=== PATIENT | male | born 1985 | race Hispanic/Latino ===

== ENCOUNTER 2017-08-05 18:53 | Inpatient (IN) | payer MEDICAID ==
[2017-08-05 19:01] VITALS: BMI 28.8
--- NOTE | 2017-08-05 19:19 | ED PDOC ---
Arrival/HPI - General Chief Complaint: Psychiatric Evaluation Time Seen by Provider: 08/05/17 18:56 Historian: Patient - History of Present Illness Narrative History of Present Illness (Text): 08/05/17 19:16 31yr old male presents today with depression and SI. pt states that for the past 6 months he has been feeling more depressed s/p separation and moving back to [place]. pt denies cp or sob. no abdominal pain. no n/v/d/c. admits to drinking etoh today. pt states he considered suicide by coper hand. no other complaints. Past Medical History - Provider Review Nursing Documentation Reviewed: Yes - Travel History Have you recently traveled outside US w/in the past 3 mons?: No - Infectious Disease Hx of Infectious Diseases: None - Psychiatric Hx Bipolar Disorder: Yes Hx Substance Use: No - Anesthesia Hx Anesthesia: No Family/Social History - Physician Review Nursing Documentation Reviewed: Yes Family/Social History: Unknown Family HX Smoking Status: Heavy Smoker > 10 Cigarettes Daily Hx Alcohol Use: Yes Frequency of alcohol use: Daily Hx Substance Use: No Allergies/Home Meds Allergies/Adverse Reactions: Allergies No Known Allergies Allergy (Verified 08/05/17 19:01) Home Medications: Home Meds Medication Instructions Recorded Confirmed No Known Home Med 08/05/17 08/05/17 Review of Systems - Review of Systems Constitutional: absent: Fatigue, Fevers Respiratory: absent: SOB, Cough Cardiovascular: absent: Chest Pain, Palpitations Gastrointestinal: absent: Abdominal Pain, Nausea, Vomiting Genitourinary Male: absent: Dysuria Musculoskeletal: absent: Arthralgias, Neck Pain Skin: absent: Rash, Pruritis Neurological: absent: Headache, Dizziness Psychiatric: Depression, Suicidal Ideation Physical Exam Vital Signs Reviewed: Yes Vital Signs Temp Pulse Resp BP Pulse Ox 08/05/17 19:39 98.0 F 88 18 115/74 99 Temperature: Afebrile Blood Pressure: Normal Pulse: Regular Respiratory Rate: Normal Appearance: Positive for: Well-Appearing, Non-Toxic, Comfortable Pain Distress: None Mental Status: Positive for: Alert and Oriented X 3 - Systems Exam Head: Present: Atraumatic Mouth: Present: Moist Mucous Membranes Neck: Present: Normal Range of Motion Respiratory/Chest: Present: Clear to Auscultation, Good Air Exchange. No: Respiratory Distress, Accessory Muscle Use Cardiovascular: Present: Regular Rate and Rhythm, Normal S1, S2. No: Murmurs Abdomen: No: Tenderness Upper Extremity: Present: Normal ROM Lower Extremity: Present: Normal ROM Neurological: Present: GCS=15, Speech Normal Skin: Present: Warm, Dry, Normal Color. No: Rashes Psychiatric: Present: Alert, Oriented x 3, Depressed Mood, Suicidal Ideation Medical Decision Making ED Course and Treatment: 08/05/17 19:21 Patient is nontoxic well-appearing in no distress vital signs are stable. CBC WNL CMP WNL Tylenol WNL Salicylate WNL Alcohol level 158 Urine drug screen wnl UA; wnl cxr: wnl ekg nsr at 76b/m no st elevations, normal axis, normal intervals. pt is medically cleared for PES evaluation Patient was seen and evaluated by PES screener: lonny pt c/o acid reflux; requesting protonix. states he takes medication at home for his reflux. pt signed voluntarily to behavioral health floor for depression Impression; depression admit to behavioral health floor 08/05/17 21:50 - Lab Interpretations Lab Results: 08/05/17 19:10 08/05/17 19:10 Lab Results 08/05/17 19:20: Urine Opiates Screen Negative, Urine Methadone Screen Negative, Ur Barbiturates Screen Negative, Ur Phencyclidine Scrn Negative, Ur Amphetamines Screen Negative, U Benzodiazepines Scrn Negative, U Oth Cocaine Metabols Negative, U Cannabinoids Screen Negative 08/05/17 19:20: Urine Color Yellow, Urine Appearance Clear, Urine pH 6.0, Ur Specific [place] <= 1.005, Urine Protein Negative, Urine Glucose (UA) Negative, Urine Ketones Negative, Urine Blood Negative, Urine Nitrate Negative, Urine Bilirubin Negative, Urine Urobilinogen 0.2, Ur Leukocyte Esterase Negative 08/05/17 19:10: Alcohol, Quantitative 158 H 08/05/17 19:10: Salicylates < 1 L, Acetaminophen < 10.0 L 08/05/17 19:10: Sodium 141, Potassium 3.8, Chloride 105, Carbon Dioxide 23, Anion Gap 17, BUN 11, Creatinine 0.7 L, Est GFR ( Amer) > 60, Est GFR ( Non-Af Amer) > 60, Random Glucose 102, Calcium 9.5, Total Bilirubin 0.2, AST 30 , ALT 34, Alkaline Phosphatase 71, Total Protein 7.7, Albumin 4.6, Globulin 3.1 , Albumin/Globulin Ratio 1.5 08/05/17 19:10: WBC 7.0, RBC 5.03, Hgb 14.1, Hct 41.8 L, MCV 83.1, MCH 28.0, MCHC 33.7, RDW 14.1, Plt Count 264, MPV 9.4, Gran % 50.3, Lymph % (Auto) 40.8 H , [place] % (Auto) 5.8, Eos % (Auto) 2.7, Baso % (Auto) 0.4, Gran # 3.54, Lymph # 2.9, [place] # 0.4, Eos # 0.2, Baso # 0.03 - RAD Interpretation Radiology Orders: 08/05/17 19:14 CHEST PORTABLE [RAD] Stat - Medication Orders Current Medication Orders: Discontinued Medications Al Hydrox/Mg Hydrox/Simethicone (Maalox Plus 30 Ml) 30 ml PO STAT STA Stop: 08/05/17 20:34 Last Admin: 08/05/17 21:01 Dose: 30 ml Pantoprazole Sodium (Protonix Ec Tab) 20 mg PO ONCE ONE Stop: 08/05/17 20:32 Last Admin: 08/05/17 21:01 Dose: 20 mg Disposition/Present on Arrival - Present on Arrival Any Indicators Present on Arrival: No History of DVT/PE: No History of Uncontrolled Diabetes: No Urinary Catheter: No History of Decub. Ulcer: No History Surgical Site Infection Following: None - Disposition Have Diagnosis and Disposition been Completed?: Yes Diagnosis: Depression Disposition: HOSPITALIZED Disposition Time: 21:50 Patient Plan: Admission Patient Problems: Current Active Problems Problem Status Onset Depression Acute Condition: FAIR Forms: [employer] (Danish)
[2017-08-05 19:42] LABS: BASO # 0.03 K/mm3 (0.0-2.0); BASO % 0.4 % (0.0-3.0); EOS # 0.2 (0.0-0.7); EOS % 2.7 % (1.5-5.0); GRAN # 3.54 (1.4-6.5); GRAN % 50.3 % (50.0-68.0); HEMATOCRIT 41.8 % (42.0-52.0); LYMPH # 2.9 (1.2-3.4); LYMPH % 40.8 % (22.0-35.0); MEAN CELL VOLUME 83.1 fl (80.0-105.0); MEAN CORPUSCULAR HGB CONC 33.7 g/dl (31.0-37.0); MEAN PLATELET VOLUME 9.4 fl (7.0-11.0); MONO # 0.4 (0.1-0.6); MONO % 5.8 % (1.0-6.0); RED CELL DISTRIBUTION WIDTH 14.1 % (11.5-14.5)
[2017-08-05 19:53] LABS: URINE APPEARANCE CLEAR (CLEAR); URINE BILIRUBIN NEGATIVE (NEGATIVE); URINE BLOOD NEGATIVE (NEGATIVE); URINE COLOR YELLOW (YELLOW); URINE GLUCOSE (UA) NEGATIVE (NEGATIVE); URINE KETONE NEGATIVE (NEGATIVE); URINE LEUKOCYTE ESTERASE NEGATIVE Leu/uL (NEGATIVE); URINE PROTEIN NEGATIVE mg/dL (<30 mg/dL); URINE UROBILINOGEN 0.2 E.U./dL (<1 E.U./dL)
[2017-08-05 19:59] LABS: ALB/GLOB RATIO 1.5 (1.1-1.8); ALKALINE PHOSPHATASE 71 U/L (38-126); ALT/SGPT 34 U/L (7-56); AST/SGOT 30 U/L (17-59); BILIRUBIN,TOTAL 0.2 mg/dL (0.2-1.3); BLOOD UREA NITROGEN 11 mg/dL (7-21); CALCIUM 9.5 mg/dL (8.4-10.5); CARBON DIOXIDE 23 mmol/L (21-33); CHLORIDE 105 mmol/L (98-107); GFR AFRICAN-AMERICAN > 60; GLUCOSE,RANDOM 102 mg/dL (70-110); POTASSIUM 3.8 mmol/L (3.6-5.0); SODIUM 141 mmol/L (132-148); TOTAL PROTEIN 7.7 g/dL (5.8-8.3)
[2017-08-05] MEDS ORDERED: Pantoprazole 20 mg EC Tab PO ONE (20:31)
[2017-08-05] MEDS ORDERED: Alum-Mag Hydrox-Simethicone Susp (30 mL) PO STA (20:33)
[2017-08-05] MEDS ORDERED: Alum-Mag Hydrox-Simethicone Susp (30 mL) PO PRN (23:31)
[2017-08-05] MEDS ORDERED: DiphenhydrAMINE 50 mg/ml Inj IM PRN (23:31)
[2017-08-05] MEDS ORDERED: Magnesium Hydroxide Susp 30 ml UD PO PRN (23:31)
[2017-08-06 01:03] VITALS: O2SAT 96
--- NOTE | 2017-08-06 01:39 | PCM.BM ---
<Hernando Sanchez - Last Filed: 08/06/17 01:37> Treatment Plan Problems - Problems identified on initial assessmt Suicidal Ideation Date Initiated: 08/05/17 Time Initiated: 22:30 Assessment reference: NA Status: Active Priority: 2 Depression Date Initiated: 08/05/17 Time Initiated: 22:30 Status: Active Priority: 1 Treatment assets and liabiliti Patient Assests: cooperative, self-reliant, ADL independent, physically healthy , negotiates basic needs, cognitively intact Patient Liabilities: live alone, financial problems, poor support system, relationship conflicts, substance abuse - Milieu Protocol Maintain good personal hygiene: daily Encourage regular showers, daily Remind patient to perform daily oral care Conduct patient checks and document Observation sheet: Q15 minutes Maintain personal safety: every shift Educate patient to report safety concerns to staff, every shift Monitor environment for contraband/sharps Medication safety: Monitor for expected outcome, potential side effects: every shift, Assess barriers to learning: every shift, Assess readiness for medication education: every shift Discharge/Continuing Care - Education Needs Education Needs: Patient Medication, Patient Diagnosis/Disease Process, Patient Coping Skills, Patient Placement options, Patient Community resources, Patient Activities of Daily Living, Patient Health Practices/Safety - Discharge Discharge Criteria: Tolerates medication w/o severe side effects, Free of Suicidal thoughts, Normal sleep pattern <Sofia Dockery - Last Filed: 08/06/17 23:19> - Diagnosis (1) Alcohol abuse Status: Acute Interventions: Monitoring withdrawal symptoms Medical detoxification Pharmacotherapy for alcohol/benzos/opioid dependence Maintaining sobriety Relapse prevention Possible rehabilitation Motivational interviewing 12-step programs: AA meetings 08/06/17 23:19 (2) Depression Status: Acute Interventions: Psychoeducation Psychopharmacology/adjustment of medications as needed/ monitoring possible side effects Evaluate pt on daily basis Compliance with medications and follow up appointments Suicide and homicide risk assessment and prevention Relapse prevention Reduction of symptoms Improve functional status Family involvement As outpatient: cognitive behavioral therapy 08/06/17 23:20 <Cintia Resendiz - Last Filed: 08/07/17 08:27> Family Contact Family involvement: Famliy/SO not involved - Goals for Treatment Patient goals for treatment: "To find a place to live."
[2017-08-06 07:43] LABS: CHOLESTEROL 218 mg/dL (130-200); GLUCOSE,FASTING 95 mg/dL (65-110)
[2017-08-06 07:44] VITALS: RESP 20
--- NOTE | 2017-08-06 09:33 | RAD ---
HISTORY: pes eval . Portable study 19:23 COMPARISON: None. FINDINGS: LUNGS: No active pulmonary disease. PLEURA: No significant pleural effusion identified, no pneumothorax apparent. CARDIOVASCULAR: Normal. OSSEOUS STRUCTURES: No significant abnormalities. VISUALIZED UPPER ABDOMEN: Normal. OTHER FINDINGS: None. IMPRESSION: No active disease.
[2017-08-06] MEDS: Oxycodone/Acetaminophen 2.5/325 mg Tab PO PRN ×2 (16:21→22:32)
--- NOTE | 2017-08-06 17:27 | CARD ---
APPROVED REPORT EKG Measurement Heart [id number] <Conclusion> Normal sinus rhythm Normal ECG
--- NOTE | 2017-08-06 19:47 | CP.PCM.CON ---
<HugoyoanaAkilshelly - Last Filed: 08/06/17 20:17> History of Present Illness - History of Present Illness History of Present Illness: Patient is a 31 year old male with no significant PMHx who was admitted to the psychiatric unit for depression with suicidal ideation. Patient currently denies suicidal ideation. We were consulted on this patient for evaluation and treatment of any medical issues. Patient complains of upper back pain. He is showing some drug seeking behavior. He asked for Dilaudid 2 and percocet 10/325 on several occasions. He also noted that ibuprofen wouldn't work and that Tramadol should be tried as an option. He denies any fevers, headache, chest pain, SOB, abdominal pain, n/v/d, constipation, urinary symptoms, or suicidal ideation. PMHx: T4/T5 Compression fracture. Brain Hemorrhage in 2010 PSHx: Denies Allergies: Penicillin SocialHx: 1/2 a pack a day for 10 years. Admits to social alcohol use. Denies illicit drug use. Family Hx: Unknown Meds: Norvasc 10 Daily, Prednisone 10mg Daily Past Patient History - Infectious Disease Hx of Infectious Diseases: None - Past Social History Smoking Status: Heavy Smoker > 10 Cigarettes Daily - CARDIAC Hx Cardiac Disorders: No Hx Hypertension: No - PULMONARY Hx Tuberculosis: No - NEUROLOGICAL HX Cerebrovascular Accident: No Hx Seizures: No Other/Comment: "Brain Hemorrhage" - HEMATOLOGICAL/ONCOLOGICAL Hx Cancer: No Hx Human Immunodeficiency Virus (HIV): No - GENITOURINARY/GYNECOLOGICAL Hx Sexually Transmitted Disorders: No - PSYCHIATRIC Hx Anxiety: Yes Hx Bipolar Disorder: Yes Hx Substance Use: Yes - SURGICAL HISTORY Hx Surgeries: No - ANESTHESIA Hx Anesthesia: No Meds Allergies/Adverse Reactions: Allergies Allergy/AdvReac Type Severity Reaction Status Date / Time Penicillins Allergy RASH Verified 08/05/17 23:47 - Medications Medications: Current Medications Acetaminophen (Tylenol 325mg Tab) 650 mg PO Q4 PRN PRN Reason: Pain, moderate (4-7) Last Admin: 08/06/17 12:15 Dose: 650 mg Al Hydrox/Mg Hydrox/Simethicone (Maalox Plus 30 Ml) 30 ml PO DAILY PRN PRN Reason: Upset Stomach Clonazepam (Klonopin) 0.5 mg PO TID PRN; Protocol PRN Reason: Anxiety Diphenhydramine HCl (Benadryl) 50 mg IM Q6 PRN PRN Reason: severe agitation Diphenhydramine HCl (Benadryl) 50 mg PO Q6 PRN PRN Reason: severe agitation Duloxetine HCl (Cymbalta) 20 mg PO DAILY ZACK Last Admin: 08/06/17 09:35 Dose: 20 mg Haloperidol (Haldol) 5 mg PO Q6 PRN; Protocol PRN Reason: severe agitation Last Admin: 08/06/17 13:19 Dose: 5 mg Haloperidol Lactate (Haldol) 5 mg IM Q6 PRN; Protocol PRN Reason: severe agitation Lorazepam (Ativan) 2 mg PO Q6 PRN; Protocol PRN Reason: severe anxiety Last Admin: 08/06/17 12:32 Dose: 2 mg Lorazepam (Ativan) 2 mg IM Q6H PRN; Protocol PRN Reason: severe agitation Magnesium Hydroxide (Milk Of Magnesia) 30 ml PO DAILY PRN PRN Reason: Constipation Oxycodone/Acetaminophen (Percocet 2.5/325 Mg Tab) 1 tab PO Q6H PRN PRN Reason: Pain, severe (8-10) Last Admin: 08/06/17 16:21 Dose: 1 tab Trazodone HCl (Desyrel) 50 mg PO HS PRN PRN Reason: Insomnia Physical Exam - Constitutional Appears: Well, Non-toxic, No Acute Distress - Head Exam Head Exam: ATRAUMATIC, NORMAL INSPECTION, NORMOCEPHALIC - Eye Exam Eye Exam: EOMI, Normal appearance - ENT Exam ENT Exam: Mucous Membranes Moist - Respiratory Exam Respiratory Exam: Clear to Auscultation Bilateral. absent: Rales, Rhonchi, Wheezes - Cardiovascular Exam Cardiovascular Exam: RRR, +S1, +S2 - GI/Abdominal Exam GI & Abdominal Exam: Normal Bowel Sounds, Soft. absent: Tenderness - Extremities Exam Extremities exam: Negative for: joint swelling, pedal edema - Back Exam Back exam: paraspinal tenderness (T4/T5 Region) - Neurological Exam Neurological exam: Alert, Normal Gait, Oriented x3 Additional comments: 5/5 Motor Strength in Upper and Lower Ext. B/L No sensory deficit. - Psychiatric Exam Psychiatric exam: Normal Affect, Normal Mood - Skin Skin Exam: Dry, Intact, Normal Color, Warm Results - Vital Signs Recent Vital Signs: Last Vital Signs Temp 97.3 F L 08/06/17 13:15 Pulse 74 08/06/17 16:00 Resp 20 08/06/17 07:43 BP 117/68 08/06/17 16:00 Pulse Ox 96 08/05/17 22:30 - Labs Result Diagrams: 08/05/17 19:10 08/05/17 19:10 Labs: Laboratory Results - last 24 hr 08/06/17 08/06/17 08/06/17 07:00 07:00 07:00 Fasting Glucose 95 Triglycerides 130 Cholesterol 218 H LDL Cholesterol Direct 150 H HDL Cholesterol 43 TSH 3rd Generation 1.25 RPR Nonreactive Assessment & Plan - Assessment and Plan (Free Text) Assessment: Patient is a 31 year old male with no significant PMHx who was admitted to the psychiatric unit for depression with suicidal ideation. Patient currently denies suicidal ideation. We were consulted on this patient for evaluation and treatment of any medical issues. Plan: Back Pain Percocet 5/325 confirmed with Pharmacy Start percocet 2.5/325 Disposition: We will sign of on this patient at this time. Please feel free to contact us if necessary. Patient seen and discussed with Attending Michael Lei - PGY1 <Kelly Rojas - Last Filed: 08/07/17 14:27> Results - Vital Signs Recent Vital Signs: Last Vital Signs Temp 97.7 F 08/07/17 07:42 Pulse 72 08/07/17 07:42 Resp 20 08/07/17 07:42 BP 107/62 08/07/17 07:42 Pulse Ox 96 08/05/17 22:30 - Labs Result Diagrams: 08/05/17 19:10 08/05/17 19:10 Labs: Laboratory Results - last 24 hr 08/06/17 07:00 RPR Nonreactive Attending/Attestation - Attestation I have personally seen and examined this patient.: Yes I have fully participated in the care of the patient.: Yes I have reviewed all pertinent clinical information: Yes Notes (Text): 08/07/17 14:23 Patient was seen and examined with medical administrative specialist. Agreed with resident assessment and plan. Patient id ambulatory, does not seem to be in pain.Power is normal in both upper and lower extremities.There is no Neurological deficit. Patient does not has any active medical issue, we will sign off.Please call us back if any question. Management plan was discussed in detail with patient Education was provided.
--- NOTE | 2017-08-06 22:45 | PCM.PSYCH ---
Initial Psychiatric Evaluation - Initial Psychiatric Evaluation Type of Admission: Voluntary Legal Status: Capacity Chief Complaint (in patient's own words): "I wanted to kill myself" Patient's Reaction to Hospitalization: Patient feels he needs to be in the hospital to stabilize, there may be a secondary gain as patient indicates that he has "no where to go until next Saturday". Patient reports he wants to learn how to handle stress and elevate his mood. History of Present Illness and Precipitating Events: Patient is a 31 year old white male seen in treatment team admitted for suicidal ideation, wanting to "jump in front of a train". According to the PES notes, patient had considered by copyist and was recently discharged from [facility], neither of which the patient mentioned in treatment team. He indicates he has been depressed since he moved back to [place] from [place] after the breakup of his 5 year relationship with his fiancee due to "not enough shared interests". He has a plan to move with some friends to [facility] after the first of the year and get a job in sales. He came back to [place] to stay with his mom who lives in [place] but was unable to go there due to her having a problem with her roommate. He reports having a "couple of drinks" prior to admission. Patient reports he was released from rehab 3 days ago. Patient reports he was in [facility] and was transferred to [facility] in [place], [place]. Medically, he injured his back while in the [place]. He says he served 5 years and was discharged honorably. He does not have his papers from the service. PT reports he was last admitted to [facility] psych unit in 2009 while under the care of Dr. Adams. Current Medications: Active Medications Generic Name Dose Route Start Last Admin Trade Name Freq PRN Reason Stop Dose Admin Acetaminophen 650 mg 08/05/17 23:31 08/06/17 12:15 Tylenol 325mg Tab PO 650 mg Q4 PRN Administration Pain, moderate (4-7) Al Hydrox/Mg Hydrox/Simethicone 30 ml 08/05/17 23:31 Maalox Plus 30 Ml PO DAILY PRN Upset Stomach Clonazepam 0.5 mg 08/05/17 23:31 Klonopin PO TID PRN Anxiety Protocol Diphenhydramine HCl 50 mg 08/05/17 23:31 Benadryl IM Q6 PRN severe agitation Diphenhydramine HCl 50 mg 08/05/17 23:31 Benadryl PO Q6 PRN severe agitation Duloxetine HCl 20 mg 08/06/17 08:00 08/06/17 09:35 Cymbalta PO 20 mg DAILY ZACK Administration Haloperidol 5 mg 08/06/17 13:15 08/06/17 13:19 Haldol PO 5 mg Q6 PRN Administration severe agitation Protocol Haloperidol Lactate 5 mg 08/05/17 23:41 Haldol IM Q6 PRN severe agitation Protocol Lorazepam 2 mg 08/05/17 23:43 08/06/17 22:32 Ativan PO 2 mg Q6 PRN Administration severe anxiety Protocol Lorazepam 2 mg 08/05/17 23:31 Ativan IM Q6H PRN severe agitation Protocol Magnesium Hydroxide 30 ml 08/05/17 23:31 Milk Of Magnesia PO DAILY PRN Constipation Oxycodone/Acetaminophen 1 tab 08/06/17 15:15 08/06/17 22:32 Percocet 2.5/325 Mg Tab PO 1 tab Q6H PRN Administration Pain, severe (8-10) Trazodone HCl 50 mg 08/05/17 23:31 Desyrel PO HS PRN Insomnia Past Psychiatric History - Past Psychiatric History Previous Treatment History: Inpatient History of Abuse: Denied History of ETOH/Drug Use: History of alcoholism History of Family Illness: Denied Pertinent Medical Hx (Current Medical&Sleep Prob, Allergies): Allergies Allergy/AdvReac Type Severity Reaction Status Date / Time Penicillins Allergy RASH Verified 08/05/17 23:47 No Known Home Med 08/05/17 Laboratory Last Values WBC 7.0 10^3/ul (4.5-11.0) 08/05/17 19:10 RBC 5.03 10^6/uL (3.5-6.1) 08/05/17 19:10 Hgb 14.1 g/dL (14.0-18.0) 08/05/17 19:10 Hct 41.8 % (42.0-52.0) L 08/05/17 19:10 MCV 83.1 fl (80.0-105.0) 08/05/17 19:10 MCH 28.0 pg (25.0-35.0) 08/05/17 19:10 MCHC 33.7 g/dl (31.0-37.0) 08/05/17 19:10 RDW 14.1 % (11.5-14.5) 08/05/17 19:10 Plt Count 264 10^3/uL (120.0-450.0) 08/05/17 19:10 MPV 9.4 fl (7.0-11.0) 08/05/17 19:10 Gran % 50.3 % (50.0-68.0) 08/05/17 19:10 Lymph % (Auto) 40.8 % (22.0-35.0) H 08/05/17 19:10 [place] % (Auto) 5.8 % (1.0-6.0) 08/05/17 19:10 Eos % (Auto) 2.7 % (1.5-5.0) 08/05/17 19:10 Baso % (Auto) 0.4 % (0.0-3.0) 08/05/17 19:10 Gran # 3.54 (1.4-6.5) 08/05/17 19:10 Lymph # 2.9 (1.2-3.4) 08/05/17 19:10 [place] # 0.4 (0.1-0.6) 08/05/17 19:10 Eos # 0.2 (0.0-0.7) 08/05/17 19:10 Baso # 0.03 K/mm3 (0.0-2.0) 08/05/17 19:10 Sodium 141 mmol/L (132-148) 08/05/17 19:10 Potassium 3.8 mmol/L (3.6-5.0) 08/05/17 19:10 Chloride 105 mmol/L (98-107) 08/05/17 19:10 Carbon Dioxide 23 mmol/L (21-33) 08/05/17 19:10 Anion Gap 17 (10-20) 08/05/17 19:10 BUN 11 mg/dL (7-21) 08/05/17 19:10 Creatinine 0.7 mg/dl (0.8-1.5) L 08/05/17 19:10 Est GFR ( Amer) > 60 08/05/17 19:10 Est GFR (Non-Af Amer) > 60 08/05/17 19:10 Random Glucose 102 mg/dL (70-110) 08/05/17 19:10 Fasting Glucose 95 mg/dL (65-110) 08/06/17 07:00 Calcium 9.5 mg/dL (8.4-10.5) 08/05/17 19:10 Total Bilirubin 0.2 mg/dL (0.2-1.3) 08/05/17 19:10 AST 30 U/L (17-59) 08/05/17 19:10 ALT 34 U/L (7-56) 08/05/17 19:10 Alkaline Phosphatase 71 U/L (38-126) 08/05/17 19:10 Total Protein 7.7 g/dL (5.8-8.3) 08/05/17 19:10 Albumin 4.6 g/dL (3.0-4.8) 08/05/17 19:10 Globulin 3.1 gm/dL 08/05/17 19:10 Albumin/Globulin Ratio 1.5 (1.1-1.8) 08/05/17 19:10 Triglycerides 130 mg/dL (35-160) 08/06/17 07:00 Cholesterol 218 mg/dL (130-200) H 08/06/17 07:00 LDL Cholesterol Direct 150 mg/dL (0-129) H 08/06/17 07:00 HDL Cholesterol 43 mg/dL (29-60) 08/06/17 07:00 TSH 3rd Generation 1.25 mIU/mL (0.46-4.68) 08/06/17 07:00 Urine Color Yellow (YELLOW) 08/05/17 19:20 Urine Appearance Clear (CLEAR) 08/05/17 19:20 Urine pH 6.0 (4.7-8.0) 08/05/17 19:20 Ur Specific [place] <= 1.005 (1.005-1.035) 08/05/17 19:20 Urine Protein Negative mg/dL (<30 mg/dL) 08/05/17 19:20 Urine Glucose (UA) Negative mg/dL (NEGATIVE) 08/05/17 19:20 Urine Ketones Negative mg/dL (NEGATIVE) 08/05/17 19:20 Urine Blood Negative (NEGATIVE) 08/05/17 19:20 Urine Nitrate Negative (NEGATIVE) 08/05/17 19:20 Urine Bilirubin Negative (NEGATIVE) 08/05/17 19:20 Urine Urobilinogen 0.2 E.U./dL (<1 E.U./dL) 08/05/17 19:20 Ur Leukocyte Esterase Negative [place]/uL (NEGATIVE) 08/05/17 19:20 Salicylates < 1 mg/dL (2.0-20.0) L 08/05/17 19:10 Urine Opiates Screen Negative (NEGATIVE) 08/05/17 19:20 Urine Methadone Screen Negative (NEGATIVE) 08/05/17 19:20 Acetaminophen < 10.0 ug/ml (10.0-20.0) L 08/05/17 19:10 Ur Barbiturates Screen Negative (NEGATIVE) 08/05/17 19:20 Ur Phencyclidine Scrn Negative (NEGATIVE) 08/05/17 19:20 Ur Amphetamines Screen Negative (NEGATIVE) 08/05/17 19:20 U Benzodiazepines Scrn Negative (NEGATIVE) 08/05/17 19:20 U Oth Cocaine Metabols Negative (NEGATIVE) 08/05/17 19:20 U Cannabinoids Screen Negative (NEGATIVE) 08/05/17 19:20 Alcohol, Quantitative 158 mg/dL (0-10) H 08/05/17 19:10 RPR Nonreactive (NONREACTIVE) 08/06/17 07:00 Temp Pulse Resp BP Pulse Ox 97.3 F L 74 20 117/68 96 08/06/17 13:15 08/06/17 16:00 08/06/17 07:43 08/06/17 16:00 08/05/17 22:30 Review of Systems - EENT Eyes: As Per HPI Ears: As Per HPI Nose/Mouth/Throat: As Per HPI - Cardiovascular Cardiovascular: As Per HPI - Respiratory Respiratory: As Per HPI - Gastrointestinal Gastrointestinal: As Per HPI - Genitourinary Genitourinary: As Per HPI - Reproductive: Male Reproductive:Male: As Per HPI - Musculoskeletal Musculoskeletal: As Par HPI - Integumentary Integumentary: As Per HPI - Neurological Neurological: As Per HPI - Psychiatric Psychiatric: As Per HPI - Endocrine Endocrine: As Per HPI - Hematologic/Lymphatic Hematologic: As Per HPI Mental Status Examination - Affect Affect: Constricted - Motor Activity Motor Activity: Calm - Reliability in Providing Information Reliability in Providing Information: Fair - Speech Speech: Organized - Mood Mood: Neutral - Formal Thought Process Formal Thought Process: No Impairment - Obsessions/Compulsions Obsessions: None Compulsions: None - Cognitive Functions Orientation: Person, Place, Situation, Time Sensorium: Alert Attention/Concentration: Attentive Estimate of Intelligence: Average - Risk Risk: Suicidal - Strength & Assets Inventory Strength & Assets Inventory: Life experience, Cooperative - Limitations Additional comments: Homelessness, lack of support system DSM 5 DX - DSM 5 DSM 5 Diagnosis: Depression Alcohol Use Disorder - Recommended/Plan of Treatment Treatment Recommendations and Plan of Treatment: Treatment plan: Milieu/structure/supportive therapy Medical consult appreciated, see medical team note for more detailed info consultation for discharge plan and social issues Med management Family involvement Follow up on labs Will monitor closely evaluation for d/c planning Pt was educated about risk/benefits and alternatives of medications, coping strategies (safety plan, suicide prevention), relapse prevention, importance of follow up with psychiatrist and therapist, stay away from drugs/alcohol/smoking Projected ELOS: 08/09/2017 Discharge Plan and Discharge Criteria: Patient will no longer be suicidal, patient will have a discharge plan for housing and followup, patient will be educated as to the relationship between alcohol use and mood disorders. - Smoking Cessation Smoking Cessation Initiated: No Reason for not providing: Not a smoker
[2017-08-07 07:43] VITALS: BP 107/62; PULSE 72; TEMP 97.7
[2017-08-07] MEDS: Oxycodone/Acetaminophen 2.5/325 mg Tab PO PRN (09:19)
--- NOTE | 2017-08-07 21:49 | PCM.PYCHDC ---
Mental Status Examination - Mental Status Examination Orientation: Person, Place, Situation, Time Memory: Intact Mood: Neutral Affect: Broad Speech: Appropriate Attention: WNL Concentration: WNL Association: WNL Fund of Knowledge: WNL Formal Thought Process: No Impairment Description of patient's judgement and insight: Patient denies being suicidal or homicidal, appears in no imminent danger of hurting himself or others. Psychotic Thoughts and Behaviors: Patient denies the presence of hallucinations, delusions, or paranoia. Suicidal Ideation: No Current Homicidal Ideation?: No Discharge Summary - Discharge Note Reason for Hospitalization: Patient feels he needs to be in the hospital to stabilize, there may be a secondary gain as patient indicates that he has "no where to go until next Saturday". Patient reports he wants to learn how to handle stress and elevate his mood. Laboratory Data: Laboratory Tests 08/05/17 08/05/17 08/05/17 19:10 19:10 19:10 WBC 7.0 RBC 5.03 Hgb 14.1 Hct 41.8 L MCV 83.1 MCH 28.0 MCHC 33.7 RDW 14.1 Plt Count 264 MPV 9.4 Gran % 50.3 Lymph % (Auto) 40.8 H Weakley % (Auto) 5.8 Eos % (Auto) 2.7 Baso % (Auto) 0.4 Gran # 3.54 Lymph # 2.9 Weakley # 0.4 Eos # 0.2 Baso # 0.03 Sodium 141 Potassium 3.8 Chloride 105 Carbon Dioxide 23 Anion Gap 17 BUN 11 Creatinine 0.7 L Est GFR ( Amer) > 60 Est GFR (Non-Af Amer) > 60 Random Glucose 102 Fasting Glucose Calcium 9.5 Total Bilirubin 0.2 AST 30 ALT 34 Alkaline Phosphatase 71 Total Protein 7.7 Albumin 4.6 Globulin 3.1 Albumin/Globulin Ratio 1.5 Triglycerides Cholesterol LDL Cholesterol Direct HDL Cholesterol TSH 3rd Generation Urine Color Urine Appearance Urine pH Ur Specific Fifty Six Urine Protein Urine Glucose (UA) Urine Ketones Urine Blood Urine Nitrate Urine Bilirubin Urine Urobilinogen Ur Leukocyte Esterase Salicylates < 1 L Urine Opiates Screen Urine Methadone Screen Acetaminophen < 10.0 L Ur Barbiturates Screen Ur Phencyclidine Scrn Ur Amphetamines Screen U Benzodiazepines Scrn U Oth Cocaine Metabols U Cannabinoids Screen Alcohol, Quantitative RPR 1208/05/17 08/05/17 19:10 19:20 19:20 WBC RBC Hgb Hct MCV MCH MCHC RDW Plt Count MPV Gran % Lymph % (Auto) [place] % (Auto) Eos % (Auto) Baso % (Auto) Gran # Lymph # Weak[place] # Eos # Baso # Sodium Potassium Chloride Carbon Dioxide Anion Gap BUN Creatinine Est GFR ( Amer) Est GFR (Non-Af Amer) Random Glucose Fasting Glucose Calcium Total Bilirubin AST ALT Alkaline Phosphatase Total Protein Albumin Globulin Albumin/Globulin Ratio Triglycerides Cholesterol LDL Cholesterol Direct HDL Cholesterol TSH 3rd Generation Urine Color Yellow Urine Appearance Clear Urine pH 6.0 Ur Specific Fifty Six <= 1.005 Urine Protein Negative Urine Glucose (UA) Negative Urine Ketones Negative Urine Blood Negative Urine Nitrate Negative Urine Bilirubin Negative Urine Urobilinogen 0.2 Ur Leukocyte Esterase Negative Salicylates Urine Opiates Screen Negative Urine Methadone Screen Negative Acetaminophen Ur Barbiturates Screen Negative Ur Phencyclidine Scrn Negative Ur Amphetamines Screen Negative U Benzodiazepines Scrn Negative U Oth Cocaine Metabols Negative U Cannabinoids Screen Negative Alcohol, Quantitative 158 H RPR 08/06/17 08/06/17 08/06/17 07:00 07:00 07:00 WBC RBC Hgb Hct MCV MCH MCHC RDW Plt Count MPV Gran % Lymph % (Auto) [place] % (Auto) Eos % (Auto) Baso % (Auto) Gran # Lymph # Weakley # Eos # Baso # Sodium Potassium Chloride Carbon Dioxide Anion Gap BUN Creatinine Est GFR ( Amer) Est GFR (Non-Af Amer) Random Glucose Fasting Glucose 95 Calcium Total Bilirubin AST ALT Alkaline Phosphatase Total Protein Albumin Globulin Albumin/Globulin Ratio Triglycerides 130 Cholesterol 218 H LDL Cholesterol Direct 150 H HDL Cholesterol 43 TSH 3rd Generation 1.25 Urine Color Urine Appearance Urine pH Ur Specific Fifty Six Urine Protein Urine Glucose (UA) Urine Ketones Urine Blood Urine Nitrate Urine Bilirubin Urine Urobilinogen Ur Leukocyte Esterase Salicylates Urine Opiates Screen Urine Methadone Screen Acetaminophen Ur Barbiturates Screen Ur Phencyclidine Scrn Ur Amphetamines Screen U Benzodiazepines Scrn U Oth Cocaine Metabols U Cannabinoids Screen Alcohol, Quantitative RPR Nonreactive Temp Pulse Resp BP Pulse Ox 97.7 F 72 20 107/62 96 08/07/17 07:42 08/07/17 07:42 08/07/17 07:42 08/07/17 07:42 08/05/17 22:30 Consultations:: List each consultation separately and include: 1. Reason for request. 2. Findings. 3. Follow-up Consultations: Medical consult per Dr Rojas, med seeking behavior noted. Summary of Hospital Course include:: 1. Description of specific treatment plan utilized for patients during their course of treatmen. 2. Summarize the time- course for resolution of acute symptoms and/or regressed behaviors. 3. Describe issues identified and worked on during hospitalization. 4. Describe medication utilized. 5. Describe medical problems identified and treated. 6. Reassessment of suicide risk Summary of Hospital Course: Patient is a 31 year old white male seen in treatment team admitted for suicidal ideation, wanting to "jump in front of a train". According to the PES notes, patient had considered by copy clerk and was recently discharged from [facility], neither of which the patient mentioned in treatment team. He indicates he has been depressed since he moved back to [place] from [place] after the breakup of his 5 year relationship with his fiancee due to "not enough shared interests". He has a plan to move with some friends to [facility] after the first of the year and get a job in sales. He came back to [place] to stay with his mom who lives in [place] but was unable to go there due to her having a problem with her roommate. He reports having a "couple of drinks" prior to admission. Patient reports he was released from rehab 3 days ago. Patient reports he was in [facility] and was transferred to [facility] in [place], [place]. Medically, he injured his back while in the [place]. He says he served 5 years and was discharged honorably. He does not have his papers from the service. PT reports he was [facility] admitted [facility] in 2009 while under the care of Dr. Adams. Patient was in the hospital a little over a day. He was able to find a place to stay and was no longer suicidal or homicidal. He was not commitable so signed out AMA. - Diagnosis (1) Alcohol abuse Status: Chronic Priority: Medium (2) Depression Status: Resolved Priority: Medium - Final Diagnosis (DSM 5) Condition upon Discharge: FAIR Disposition: AGAINST MEDICAL ADVICE Follow-up Treatment Plan: Treatment plan: Milieu/structure/supportive therapy Medical consult appreciated, see medical team note for more detailed info SW consultation for discharge plan and social issues Med management Family involvement Follow up on labs Will monitor closely evaluation for d/c planning Pt was educated about risk/benefits and alternatives of medications, coping strategies (safety plan, suicide prevention), relapse prevention, importance of follow up with psychiatrist and therapist, stay away from drugs/alcohol/smoking - Smoking Cessation Smoking Cessation Medication prescribed: No Reason for not providing: Not a smoker - Antipsychotic Medications Pt discharged on 2 or more routine antipsychotic medications: No
== END 2017-08-07 12:40 | disposition left against medical advice (07) | DRG 430 ==
LOC: ED 18:53 → ERH 21:49 → PSYC 22:33
PROVIDERS: ADMIT Psychiatry & Neurology Psychiatry; ATTEND Psychiatry & Neurology Psychiatry
DX: F32.89 Other specified depressive episodes (principal); F11.20 Opioid dependence, uncomplicated; R45.851 Suicidal ideations; F10.10 Alcohol abuse, uncomplicated; Z76.5 Malingerer [conscious simulation]; F17.210 Nicotine dependence, cigarettes, uncomplicated; R40.2412 Glasgow coma scale score 13-15, at arrival to emergency department; Z88.0 Allergy status to penicillin; F41.9 Anxiety disorder, unspecified